=== PATIENT | female | born 1985 | race Hispanic/Latino ===

== ENCOUNTER 2017-11-23 05:59 | Day surgery (SDC) | payer BC ==
[2017-11-23] MEDS ORDERED: Lidocaine 1% Inj (20ml) ONE (07:24)
[2017-11-23] MEDS ORDERED: methylPREDNISolone Depo 80 mg/ml Inj ONE (07:24)
[2017-11-23] MEDS ORDERED: Bacitracin Ointment 30 GM TUBE ONE (07:24)
[2017-11-23] MEDS ORDERED: Bupivacaine 0.5% Inj(30mL) ONE (07:24)
--- NOTE | 2017-11-23 07:28 | CP.SDSHP ---
Same Day Surgery H & P - History Proposed Procedure: Left knee diagnostic arthroscopy, patella re-alignment Pre-Op Diagnosis: Left knee patella subluxation - Previous Medical/Surgical History Misc: Other (gastrits) Pain: 6.Severe Pain Previous Surgical History: cervical fusion, right knee arthroscopy, left shoulder AC joint reconstruction - Allergies Allergies: Allergies No Known Allergies Allergy (Verified 11/22/17 10:37) - Current Medications Current Medications: acifex - Physical Exam General Appearance: No acute distress Mental Status: Alert & Oriented x3 Neuro: WNL Heart: WNL Lungs: WNL GI: WNL - {Optional Preform as Required} Abdomen: WNL Integument: WNL Ortho: Other (Left knee: no swelling, + tenderness, sensation intact) - Impression Impression: Patient is a 32 y/o female with a left knee patella subluxation who presents for a left knee arthroscopy and patella re-alignment. Risks and benefits of the procedure were explained and the patient agrees to proceed Pt. Evaluated Today:Candidate for Anesthesia & Procedure: Yes - Date & Time Date: 11/23/17 Time: 07:28 Short Stay Discharge - Short Stay Discharge Admitting Diagnosis/Reason for Visit: S83.241A Disposition: HOME/ ROUTINE Referrals: Raúl Vallejo III, MD [Primary Care Provider] -
[2017-11-23] MEDS ORDERED: ePHEDrine 50 mg/ml Inj ONE (07:35)
[2017-11-23] MEDS ORDERED: Rocuronium 10 mg/ml (5 ml) ONE (07:35)
[2017-11-23] MEDS ORDERED: Lidocaine 2% MPF (5 ml) Inj ONE (07:35)
[2017-11-23] MEDS ORDERED: Propofol 10 mg/ml Inj (20 ML) ONE (07:35)
[2017-11-23] MEDS ORDERED: Succinylcholine 200 mg/10 ml Inj IV ONE (07:36)
[2017-11-23] MEDS ORDERED: EPINEPHrine 1 mg/ml (1:1000) Inj ONE ×2 (07:36→07:40)
[2017-11-23 07:44] VITALS: O2SAT 100
[2017-11-23] MEDS ORDERED: Lactated Ringer's 1,000 ML IV ONE ×3 (07:47→15:17)
[2017-11-23] MEDS ORDERED: Midazolam 2 MG/2 ML VIAL ONE (09:18)
[2017-11-23] MEDS ORDERED: Lidocaine 4% (Laryng-O-Jet) Kit MM ONE (09:19)
[2017-11-23] MEDS ORDERED: Ropivacaine 0.5% 30ML IV ONE (09:24)
[2017-11-23] MEDS ORDERED: EPINEPHrine 1 mg/ml (1:1000) Inj IV ONE (12:12)
[2017-11-23] MEDS ORDERED: Lidocaine 1% Inj (20ml) INFIL ONE ×2 (12:12)
[2017-11-23] MEDS ORDERED: Neostigmine 1:1000 (1 mg/ml) Inj ONE (13:42)
--- NOTE | 2017-11-23 13:55 | PCM.SURG1 ---
Surgeon's Initial Post Op Note - Surgeon's Notes Surgeon: Yoni Adult Care Manager: 1st assist ABHAY Gaviria/2nd assist - Murali Underwood PA-C Type of Anesthesia: General Endo, Block Regional Anesthesia Administered By: DR Lopez Pre-Operative Diagnosis: postrtaumatic patell subluxation L knee/internal derangement L knee. (psot traumatic) Operative Findings: patella subluXATION'/ post traumatic. tear lateral meniscus. tricompartmental synovitis Post-Operative Diagnosis: as above Operation Performed: Medial patellofemoral ligament reconstruction ( L Knee). surgical arthroscopy partial tricompartmental synovectomy. surgical arthroscopy partial lateral meniscectomy. intraarticular injection. appl; ication Shukri Ruiz compression dressing and knee immobilizer Specimen/Specimens Removed: synovium/cartialge/bone Estimated Blood Loss: EBL {In ML}: 10 Blood Products Given: N/A Drains Used: No Drains Post-Op Condition: Good Date of Surgery/Procedure: 11/23/17 Time of Surgery/Procedure: 12:10 (11:15 timke in room /anesthesia indcution time )
[2017-11-23] MEDS ORDERED: Oxycodone/Acetaminophen 5/325 mg Tab PO PRN (14:15)
[2017-11-23] MEDS ORDERED: Sodium Chloride 0.9% 1,000 ML IV SCH (14:15)
--- NOTE | 2017-11-23 14:29 | PCM.ANESB3 ---
Femoral Nerve Block - Femoral Nerve Block Date of Procedure: 11/23/17 Anesthesiologist: Dr. Lopez Pre-Procedure Diagnosis: S/P left knee arthroscopy with patello-femoral ligament reconstruction Post-Procedure Diagnosis: S/P left knee arthroscopy with patello-femoral ligament reconstruction Procedure Performed: Femoral Nerve Block Left - Procedure Femoral Nerve Block: The procedure was explained to the patient that it is for the post-operative pain management. Consent was obtained after a thorough discussion with the patient regarding the benefits and possible complications of local anesthetic block of the femoral nerve at the inguinal crease area. The patient was brought to the operating room and standard monitors were applied. Time-out was held with the circulating nurse to confirm the correct surgery and the appropriate block. After the surgery while still under general anesthesia, patient in supine position with fully extended lower extremities and the left groin exposed. The femoral artery was then carefully palpated. The ultrasound transducer was then applied to this area in the transverse plane and the femoral nerve was visualized lateral to the femoral artery and underneath the fascia iliaca. After thorough identification, the inguinal crease area was prepped with Chloraprep solution. At this point, a #20 gauge Stimuplex 4-inch needle was inserted immediately lateral to the femoral artery pulse at the inguinal crease and advanced perpendicularly. The needle was inserted to the ultrasound transducer in-plane towards the femoral nerve in a [id number] direction. Needle advancement was performed carefully under direct ultrasound visualization. Nerve stimulator was used and twitch of the quadriceps muscle was obtained at current of 0.2MA. After negative aspiration, 5cc of 0.5% Ropivacaine was injected and this was followed with 15cc of 0.5% Ropivacaine. Under ultrasound guidance the local anesthetics were observed spreading below fascia iliaca and around the femoral nerve. The needle was removed intact and sterile dressing was applied. The patient had stable vital signs, and was awaken from anesthesia with no apparent distress. The patient tolerated the femoral nerve block well with stable vital signs and was subsequently transported to PACU.
[2017-11-23] MEDS ORDERED: Lactated Ringer's 1,000 ML IV SCH (14:30)
[2017-11-23] MEDS: HYDROmorphone 0.5 mg/0.5 ml ISec IVP PRN ×3 (14:35→14:59)
[2017-11-23 14:40] VITALS: RESP 18
--- NOTE | 2017-11-23 15:23 | RAD ---
PROCEDURE: Left Knee Radiographs. HISTORY: Pain. COMPARISON: None. FINDINGS: BONES: No acute fracture. JOINTS: Unremarkable. JOINT EFFUSION: None. OTHER FINDINGS: Postsurgical changes with air and fluid seen in the suprapatellar bursa and skin staple seen superficially. IMPRESSION: Postsurgical changes. No acute fracture.
[2017-11-23 17:37] VITALS: BP 118/67; PULSE 96; TEMP 98
--- NOTE | 2017-11-24 10:32 | RAD ---
PROCEDURE: Intraoperative Fluoroscopy. . HISTORY: RIGHT FOOT FINDINGS: Fluoroscopic assistance was provided. That the 32.5 Seconds of fluoroscopy time utilized during this procedure. Radiation dose = 1.07 mGy Please refer to the operative for additional details.
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
== END 2017-11-23 18:00 | disposition home or self-care (01) ==
LOC: H.OPSURG 05:59
PROVIDERS: ATTEND Orthopaedic Surgery
DX: S83.002A Unspecified subluxation of left patella, initial encounter (principal); S83.282A Other tear of lateral meniscus, current injury, left knee, initial encounter; M65.9 Synovitis and tenosynovitis, unspecified; V89.2XXA Person injured in unspecified motor-vehicle accident, traffic, initial encounter
CPT/HCPCS: 27428; 29876; 29880; 64447; 73560; 88305; 97116; 97161; C1713; C1762; G8978; G8979; G8980; J0171; J0330; J0690; J1170; J1885; J2250; J2405; J2704; J2710; J2765; J3010; J7030; J7120; L1830

== ENCOUNTER 2018-10-01 05:56 | Day surgery (SDC) | payer OTHER ==
[2018-09-26 16:24] VITALS: BMI 22.6
[2018-10-01 07:08] VITALS: RESP 18
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
[2018-10-01] MEDS ORDERED: Lactated Ringer's 1,000 ML IV ONE ×2 (07:20→11:05)
[2018-10-01] MEDS ORDERED: Propofol 10 mg/ml Inj (20 ML) ONE (07:23)
[2018-10-01] MEDS ORDERED: Succinylcholine Chloride 20 mg/ml Syr (5 ml) IV ONE (07:24)
[2018-10-01] MEDS ORDERED: Midazolam 2 MG/2 ML VIAL ONE (07:24)
[2018-10-01] MEDS ORDERED: Lidocaine 4% (Laryng-O-Jet) Kit MM ONE (07:30)
[2018-10-01 07:43] LABS: BASO # 0.1 K/uL (0.0-0.2); BASO % 0.9 % (0.0-2.0); EOS # 0.1 K/uL (0.0-0.7); EOS % 0.7 % (0.0-4.0); HEMOGLOBIN 13.7 g/dL (12.0-16.0); LYMPH # 2.8 K/uL (1.0-4.3); LYMPH % 37.1 % (20.0-40.0); MEAN PLATELET VOLUME 11.6 fl (7.2-11.7); MONO # 0.5 K/uL (0.0-0.8); MONO % 6.3 % (0.0-10.0); NEUT # 4.1 K/uL (1.8-7.0); RBC 4.3 Mil/uL (3.80-5.20); RED CELL DISTRIBUTION WIDTH 13.7 % (11.5-14.5); WHITE BLOOD COUNT 7.5 K/uL (4.8-10.8)
[2018-10-01] MEDS ORDERED: ceFAZolin IV 1 gm in Dextrose 1 GM/50 ML BAG IVPB ONE (07:43)
[2018-10-01] MEDS ORDERED: Rocuronium 10 mg/ml (5 ml) ONE ×2 (08:24→10:46)
[2018-10-01] MEDS ORDERED: Phenylephrine 10 mg/ml Inj ONE (08:25)
[2018-10-01] MEDS ORDERED: Dexamethasone 4 mg/1 ml ONE ×2 (08:27→10:04)
[2018-10-01] MEDS ORDERED: ePHEDrine 50 mg/ml Inj ONE (08:43)
[2018-10-01] MEDS ORDERED: Lidocaine 1% Inj (20ml) IJ ONE (08:45)
[2018-10-01] MEDS ORDERED: Neostigmine 1:1000 (1 mg/ml) Inj ONE (08:59)
[2018-10-01] MEDS ORDERED: Esmolol 100 mg/10ml Inj IV ONE (09:12)
[2018-10-01] MEDS ORDERED: Bacitracin OINT 15GM TOP ONE (11:10)
[2018-10-01] MEDS ORDERED: Oxycodone/Acetaminophen 5/325 mg Tab PO PRN (11:27)
[2018-10-01] MEDS: HYDROmorphone 0.5 mg/0.5 ml ISec IVP PRN ×2 (11:28→11:55)
[2018-10-01] MEDS ORDERED: Ropivacaine 0.5% 30ML IV ONE (11:28)
[2018-10-01 11:32] VITALS: O2SAT 100
--- NOTE | 2018-10-01 11:50 | PCM.ANESB3 ---
Femoral Nerve Block - Femoral Nerve Block Date of Procedure: 10/01/18 Anesthesiologist: mariana Pre-Procedure Diagnosis: r knee internal derangement Post-Procedure Diagnosis: same Procedure Performed: Femoral Nerve Block Right - Procedure Femoral Nerve Block: The procedure was explained to the patient that it is for the post-operative pain management. Consent was obtained after a thorough discussion with the patient regarding the benefits and possible complications of local anesthetic block of the femoral nerve at the inguinal crease area. The patient was brought to the PACU room and standard monitors were applied. Time-out was held with the circulating nurse to confirm the correct surgery and the appropriate block. After applying oxygen by nasal cannula and administering IV Sedation, patient was placed in supine position with fully extended lower extremities and the _right groin exposed. The femoral artery was then carefully palpated. The ultrasound transducer was then applied to this area in the transverse plane and the femoral nerve was visualized lateral to the femoral artery and underneath the fascia iliaca. After thorough identification, the inguinal crease area was prepped with Betadine solution three times and 1 % Lidocaine was injected subcutaneously for topical anesthesia. At this point, a #22 gauge Stimuplex 4-inch needle was inserted immediately lateral to the femoral artery pulse at the inguinal crease and advanced perpendicularly. The needle was inserted to the ultrasound transducer in-plane towards the femoral nerve in a [id number] direction. Needle advancement was performed carefully under direct ultrasound visualization. Nerve stimulator was used and twitch of the right quadriceps muscle was obtained at current of 2.0 MA. After negative aspiration, ___1__cc of __0.5___% ___ropivicaine was injected and this was followed with _19 cc of _0.5 % ___ropivicaine . Under ultrasound guidance the local anesthetics were observed spreading below fascia iliaca and around the femoral nerve. The needle was removed intact and sterile dressing was applied. The patient had stable vital signs, was conscious and in no apparent distress. The patient tolerated the femoral nerve block well with stable vital signs and was prepared for subsequent surgery.
--- NOTE | 2018-10-01 12:52 | RAD ---
Date of service: 10/01/2018 PROCEDURE: Right Knee Radiographs. HISTORY: pt in pacu s/p MPFL reconstruction COMPARISON: None. FINDINGS: BONES: No acute fracture or destructive bony lesion identified. JOINTS: Normal. No osteoarthritis. JOINT EFFUSION: Postoperative enzymes changes are identified at the medial knee and thigh deep soft tissues. No retained radiodense foreign body is appreciate. OTHER FINDINGS: None. IMPRESSION: No acute fracture or dislocation right knee postop change identified as fast above within local soft tissues medially.
[2018-10-01 14:18] VITALS: BP 129/76; PULSE 87; TEMP 98.6
--- NOTE | 2018-10-01 14:54 | PCM.SURG1 ---
Surgeon's Initial Post Op Note - Surgeon's Notes Surgeon: Yoni Employment Security Officer: Nandini Jaime/ 2nd assist ABHAY Preciado Type of Anesthesia: General Endo Anesthesia Administered By: DR Ny Angeles Pre-Operative Diagnosis: Patellofemoral instability R Knee. inernal derangement R Knee Operative Findings: patellofemoral instabiliuty R knee. tear lateral meniscus. tricompartmental synovitis Post-Operative Diagnosis: as above Operation Performed: Medial patellofemoral ligamnet repairt/reconstruction+. surg arthroiscopy partial lateral meniscectomy. jason arthroscopy partial tricompartmental synovectomy. intraarticular injection Specimen/Specimens Removed: synovium/cartilage Estimated Blood Loss: EBL {In ML}: 15 Blood Products Given: N/A Drains Used: No Drains Post-Op Condition: Fair Date of Surgery/Procedure: 10/01/18 Time of Surgery/Procedure: 09:10 (time in room 8:05/anesthesia indcution time)
--- NOTE | 2018-10-02 15:28 | RAD ---
Date of service: 10/01/2018 PROCEDURE: Intraoperative Fluoroscopy. HISTORY: RIGHT KNEE FINDINGS: Fluoroscopic assistance was provided. Fluoroscopy time = 29.6 sec. Radiation dose = 1.40 mGy-cm please refer to the operative report from WALTER Higgins.
--- NOTE | 2018-10-08 11:25 | OP ---
PROCEDURE DATE: 10/01/2018 PREOPERATIVE DIAGNOSES: 1. Recurrent patellofemoral instability, right knee. 2. Right knee pain, internal derangement, right knee, rule out torn meniscus. POSTOPERATIVE DIAGNOSES: 1. Patellofemoral instability, right knee, status post medial patellofemoral ligament injury. 2. Tear of lateral meniscus. 3. Tricompartmental synovitis. OPERATIVE FINDINGS: 1. Patellofemoral instability, right knee with compromise of the medial patellofemoral ligament. 2. Tear of lateral meniscus, complex. 3. Tricompartmental synovitis, right knee. OPERATION PERFORMED: 1. Medial patellofemoral ligament repair/reconstruction. 2. Surgical arthroscopy, partial tricompartmental synovectomy. 3. Surgical arthroscopy, partial lateral meniscectomy. 4. Intra-articular injection. 5. Application of Shukri Ruiz compression dressing and knee immobilizer. 6. Positioning of fluoroscope interpretation of video images. SURGEON: Raúl Vallejo MD ANIMAL NUTRITION TEACHER: Dheeraj Goodson PA-C [employer] SUPERVISOR: Purnima Mckenzie, certified registered nursing accounts payable assistant. SPECIMENS REMOVED: Meniscal cartilage, synovium. BLOOD LOSS: 15 mL. BLOOD PRODUCTS: No blood products given. DRAINS: No drains. POSTOPERATIVE CONDITION: Stable. DATE OF SURGERY: 10/01/2018 TIME IN THE ROOM: Incision time 9:10 a.m. Anesthesia induction time 08:05 a.m. OPERATIVE INDICATIONS: Jacquie Curtis is a 33-year-old woman well-known to my practice. The patient is status post medial patellofemoral ligament reconstruction of the contralateral knee. The patient did quite well. The patient is having symptomatology reminiscent of the contralateral knee. The patient was treated conservatively with strengthening, bracing, anti-inflammatory medication and therapy. Pros, cons, risks and benefits of the medial patellofemoral ligament reconstruction were discussed combined with surgical arthroscopy. The possibility of mechanical failure, infection, thromboembolic disease, possibility of secondary surgery, possibility of later tibial tubercle surgery was discussed. The patient can no longer withstand the discomfort and wished the surgery to be accomplished. DESCRIPTION OF PROCEDURE: After having obtained informed consent in the above fashion, after having identified the side, site and procedure and a critical pause/time-out, after satisfactory induction of the anesthetic, the patient identified as Jacquie Curtis in the supine position with all bony prominences well padded, the right lower extremity was prepped and free draped in the usual fashion for lower extremity surgery. The tourniquet had been applied, but was not yet inflated. The lateral post was employed. The arthroscopic procedure will be performed initially after exsanguinating the limb using the 6-inch Esmarch bandage, tourniquet which had been applied was inflated to 350 mmHg. The joint was insufflated with 10 mL of 1% lidocaine without epinephrine using #11 blade from an anterolateral portal, followed by spreading, followed by introduction of blunt trocar, the arthroscope was introduced. Examination of the joint commences. With the arthroscope anterolaterally, there was found to be marked tricompartmental synovitis. Triangulation was accomplished using a #18-gauge spinal needle, followed by #11 blade followed by spreading, followed by introduction of the blunt trocar. With the arthroscope anterolaterally, a careful partial tricompartmental synovectomy was accomplished both to improve visualization and to ablate irritative tissue. With the arthroscope anterolaterally with the surgeon exerting a gentle valgus stress so as not to injure the medial collateral ligament, a careful partial tricompartmental synovectomy was completed both to improve visualization and to ablate irritative tissue. Bleeding points were controlled with the Mobivity arthroscopic wand. This having been accomplished, the tracking of the knee was evaluated. There was found to be lateral luxation of the patella which was concordant, even worse than the MRI evaluation. This having been accomplished with the arthroscope anterolaterally, with the surgeon exerting a gentle valgus stress, the anterior cruciate ligament was found to be partially injured with a low takeoff. There was no complete rupture of the anterior cruciate ligament. Possibility of later ACL reconstruction had been discussed, but will not be accomplished at this setting. With the arthroscope anterolaterally, medial compartment synovectomy was accomplished. With the arthroscope anterolaterally, with the knee in [id number] position, there was found to be a complex tear of the lateral meniscus. Using a combination of the straight-biting basket forceps and the side-biting basket forceps, a partial lateral meniscectomy was accomplished. Again, using the arthroscopic shaver, the inner free edge was smoothed. The arthroscope was transferred to the anteromedial portal. Using the straight-biting basket forceps, a partial lateral meniscectomy was completed. The inner free edge was smoothed using the arthroscopic wand. There was found to be no evidence of complete chondral damage; however, there was some fibrillation of the patellofemoral joint, especially at the posterior aspect of the patella. This having been accomplished, partial lateral meniscectomy having been accomplished, partial tricompartmental synovectomy having been accomplished, portals were closed with interrupted Vicryl and nylon. At this point, under the surgeon's direction, the fluoroscope was positioned, video images were generated and therapeutic decisions were made therefrom. The lateral luxation of the patella was established on arthroscopy and preoperative MRI examination. At Blumensaat's point, the intersection of Blumensaat's line with the posterior cortical line of the distal femur at a point approximately several millimeters superiorly and several millimeters proximally, the location for the guidewire for the patella was introduced. This having been accomplished, an incision was described approximately 3 inches at the medial aspect of the patella. The skin incision was carried down through the skin and subcutaneous tissue. Hemostasis controlled with the electrocautery. This having been accomplished, the medial border of the patella was identified. The medial patellofemoral ligament was identified and was found to be mobile. It is dissected subcutaneously down past posteriorly to the area of Blumensaat's line. This having been accomplished, the stay sutures were placed on the medial patellofemoral ligament and superiorly and at this point in time, the reconstruction and repair of the medial patellofemoral ligament with FiberWire SwiveLock technology was accomplished. the two guidewires by approximately 20 mm, the guidewires were placed bisecting the patella on the lateral plane, on the sagittal plane reaming was accomplished. The FiberTape was loaded and the superior SwiveLock was reamed and then the SwiveLock was introduced. This having been accomplished, the initial SwiveLock was introduced. The FiberTape was loaded into the second SwiveLock and the same procedure was accomplished approximately 20 mm inferiorly. The two SwiveLocks having been introduced, verification of position was offered on image intensification views. At this point in time, a secondary incision was made to accept the guidewire's position into the junction of the Blumensaat's line and the posterior cortical line of the femur. This having been accomplished, the appropriate position was found. Verification of position was offered on AP and lateral image intensification views. The reaming was accomplished. At this point in time, with the knee in approximately 20 degrees short of terminal extension, the drilling was accomplished, followed by reaming and the SwiveLock was loaded and the SwiveLock was introduced. The reconstruction and reinforcement with the internal brace technology for the medial patellofemoral ligament reconstruction having thus been accomplished, stability was found to be excellent. Great care was taken not to over-tighten the patellofemoral medial patellofemoral ligament. This having been accomplished using interrupted FiberWire, the junction between the patellofemoral ligament and the sleeve superior to the patella was repaired with interrupted sutures. The wound was thoroughly irrigated. The tourniquet was deflated. Hemostasis was controlled. The wound was thoroughly irrigated. Closures in layers with interrupted Vicryl and Quill, the 2 lateral incisions were closed. The incisions for the arthroscopy were closed with Vicryl and nylon. Intra-articular injection was offered. Shukri Ruiz compression dressing and knee immobilizer was applied. Raúl Vallejo MD
== END 2018-10-01 14:45 | disposition home or self-care (01) ==
LOC: H.OPSURG 05:56
PROVIDERS: ATTEND Orthopaedic Surgery
DX: M25.561 Pain in right knee (principal); J45.909 Unspecified asthma, uncomplicated; F32.9 Major depressive disorder, single episode, unspecified; Z87.891 Personal history of nicotine dependence
CPT/HCPCS: 29881; 36415; 73560; 85025; 86850; 86900; 97161; C1713; G8978; G8979; G8980; J0690; J1100; J1170; J1885; J2001; J2250; J2370; J2405; J2704; J2710; J2765; J3010; J7030; J7120; L1830